=== PATIENT | female | born 2000 | race Caucasian/White ===

== ENCOUNTER 2022-02-04 04:52 | Inpatient (IN) ==
[2022-02-04] MEDS ORDERED: CARBOPROST TROMETHAMINE 250 MCG/ML AMP IM PRN (06:42)
[2022-02-04] MEDS ORDERED: OXYTOCIN/LR 20 UNIT/1,000 ML BAG IV PRN (06:42)
[2022-02-04] MEDS ORDERED: METHYLERGONOVINE 0.2 MG/1 ML AMP IM PRN (06:42)
[2022-02-04] MEDS ORDERED: miSOPROStoL 200 MCG TABLET RECTAL PRN (06:42)
[2022-02-04] MEDS ORDERED: TRANEXAMIC ACID 1,000 MG in SODIUM CHLORIDE 0.9% 100 ML IV PRN (06:42)
[2022-02-04] MEDS ORDERED: BUTORPHANOL 2 MG/ML VIAL IV PRN (06:42)
[2022-02-04 07:36] LABS: Basophils % 0.4 % (0.0-0.8); Eosinophils % 0.3 % (0.00-10.9); Hematocrit 38.7 VOL% (35.7-47.0); Immature Granulocytes % 0.5 %; Immature Granulocytes Absolute 0.05 #; Lymphocytes # 1.5 10*3/uL (1.4-4.0); Mean Corpuscular HGB Conc 33.6 GM/DL (32-36); Mean Corpuscular Volume 86.2 FL (87-102); Mean Platelet Volume 11.4 FL (9.6-12.0); Monocytes # 0.8 10*3/uL (0.11-0.8); Monocytes % 7.2 % (1.7-12.7); Neutrophils % 77.6 % (38.7-73.9); Platelet Count 190 T/CUMM (130-400); Red Blood Count 4.49 MC/CUMM (3.8-5.5); Red Cell Distribution Width 13.8 % (9.3-17.3); White Blood Count 10.8 T/CUMM (4-12)
[2022-02-04 08:07] LABS: Albumin 2.5 G/DL (3.4-5.0); Bilirubin,Total 0.4 MG/DL (0.20-1.00); Osmolality,Calculated 274.4 MOS/KG (273-304); Potassium 3.3 MMOL/L (3.5-5.1); Total Protein 6.3 G/DL (6.4-8.2)
[2022-02-04] MEDS: CLINDAMYCIN INJ 900 MG/50 ML PREMIX IV SCH ×2 (08:10→15:59)
[2022-02-04] MEDS: LACTATED RINGERS 1,000 ML IV SCH ×2 (08:10→16:32)
[2022-02-04] MEDS: MEPERIDINE 50 MG/1 ML VIAL IV PRN ×3 (11:14→20:58)
[2022-02-04] MEDS: ONDANSETRON 4 MG/2 ML VIAL IV PRN ×2 (11:14→22:11)
[2022-02-04] MEDS: PANTOPRAZOLE 40 MG TABLET PO SCH ×2 (11:55→21:01)
[2022-02-04] MEDS ORDERED: NALOXONE 0.4 MG/ML VIAL IV PRN (21:54)
[2022-02-04] MEDS ORDERED: ePHEDrine 50 MG/ML VIAL IV PRN (21:54)
[2022-02-04] MEDS ORDERED: FAMOTIDINE 20 MG/2 ML VIAL IV ONE (21:54)
[2022-02-04] MEDS ORDERED: PROMETHAZINE 25 MG/1 ML VIAL IM ONE (21:54)
[2022-02-04] MEDS ORDERED: LACTATED RINGERS 500 ML IV ONE (21:54)
[2022-02-04] MEDS ORDERED: diphenhydrAMINE 50 MG/1 ML VIAL IV PRN (21:54)
[2022-02-04] MEDS ORDERED: CITRIC ACID/SODIUM CITRATE 30 ML UDCUP PO ONE (21:54)
[2022-02-04] MEDS ORDERED: CITRIC ACID/SODIUM CITRATE 30 ML UDCUP ONE (21:58)
[2022-02-04] MEDS ORDERED: LACTATED RINGERS 1,000 ML IV ONE (22:05)
[2022-02-04] MEDS: fentaNYL 2 MCG/ROPIV 0.2% EPID 100 ML EPIDURAL SCH (23:16)
[2022-02-05 00:46] LABS: Bacteria,Urine Occasional /HPF (Few); Mucus,Urine Few /LPF (Occasional); RBC,Urine 1 /HPF (0-4); Squamous Epithelial Cell,Urine Occasional /HPF (0-10)
[2022-02-05 00:47] LABS: Bilirubin,Urine Negative (Negative); Blood, Urine Negative (Negative); Glucose,Urine (UA) Negative (Negative); Ketones,Urine >160 mg/dL (Negative); Nitrite,Urine Negative (Negative); Protein,Urine Trace mg/dL (Negative); Urine Appearance Clear (Clear); Urine Color Yellow (Yellow); Urine Specific Gravity > 1.030 (1.001-1.035); Urine pH 6.5 (4.5-8.0)
[2022-02-05 00:48] LABS: Urine Urobilinogen 0.2 eU/dL (<2.0)
[2022-02-05] MEDS: CLINDAMYCIN INJ 900 MG/50 ML PREMIX IV SCH ×2 (02:13→12:09)
[2022-02-05] MEDS: LACTATED RINGERS 1,000 ML IV SCH ×2 (02:19→09:37)
[2022-02-05] MEDS: ONDANSETRON 4 MG/2 ML VIAL IV PRN (05:29)
[2022-02-05] MEDS ORDERED: miSOPROStoL 200 MCG TABLET ONE (06:17)
[2022-02-05] MEDS ORDERED: TRANEXAMIC ACID 1,000 MG/10 ML VIAL ONE (06:17)
[2022-02-05] MEDS ORDERED: CARBOPROST TROMETHAMINE 250 MCG/ML AMP IM ONE (06:17)
[2022-02-05] MEDS ORDERED: SODIUM CHLORIDE 0.9% 0 ML IV ONE (06:17)
[2022-02-05] MEDS ORDERED: METHYLERGONOVINE 0.2 MG/1 ML AMP ONE (06:17)
[2022-02-05] MEDS ORDERED: OXYTOCIN/LR 20 UNIT/1,000 ML BAG IV ONE ×2 (06:17→10:11)
[2022-02-05] MEDS: fentaNYL 2 MCG/ROPIV 0.2% EPID 100 ML EPIDURAL SCH ×2 (06:26→12:09)
[2022-02-05 10:04] LABS: Cord Arterial Blood HCO3 17.9 MMOL/L
[2022-02-05 10:06] LABS: Cord Venous Blood PCO2 41.6 MMHG; Cord Venous Blood PO2 31.8
[2022-02-05] MEDS ORDERED: WITCH HAZEL PADS 100/JAR TOP PRN (10:11)
[2022-02-05] MEDS ORDERED: ACETAMINOPHEN 325 MG TABLET PO PRN (10:11)
[2022-02-05] MEDS ORDERED: BENZOCAINE 20%/MENTHOL 0.5% SPRAY 56 GM CAN TOP PRN (10:11)
[2022-02-05] MEDS ORDERED: DIPH/TET/ACEL PERT BOOSTER VACCINE 0.5 ML VIAL IM ONE (10:11)
[2022-02-05] MEDS ORDERED: RHO(D) IMMUNE GLOBULIN 300 MCG SYRINGE IM ONE (10:11)
[2022-02-05] MEDS ORDERED: ONDANSETRON 4 MG/2 ML VIAL IV PRN (10:11)
[2022-02-05] MEDS ORDERED: oxyCODONE/ACETAMINOPHEN 5-325 MG TABLET PO PRN (10:11)
[2022-02-05] MEDS ORDERED: MEASLES/MUMPS/RUBELLA VACCINE 0.5 ML VIAL SUBCUT ONE (10:11)
[2022-02-05] MEDS ORDERED: BISACODYL 10 MG SUPP RECTAL PRN (10:11)
[2022-02-05] MEDS ORDERED: HYDROCORTISONE 2.5% RECTAL CREAM 30 GM TUBE TOP PRN (10:11)
[2022-02-05] MEDS ORDERED: LANOLIN 50% CREAM 0.3 OZ TUBE TOP PRN (10:11)
[2022-02-05] MEDS ORDERED: ALUMINUM/MAGNES/SIMETH MAX STR 30 ML UDCUP PO PRN (10:34)
[2022-02-05] MEDS: PANTOPRAZOLE 40 MG TABLET PO SCH ×2 (11:03→21:00)
[2022-02-05] MEDS: IBUPROFEN 800 MG TABLET PO PRN ×3 (12:34→23:54)
[2022-02-05] MEDS: oxyCODONE/ACETAMINOPHEN 5-325 MG TABLET PO PRN ×3 (12:34→23:55)
[2022-02-05] MEDS: DOCUSATE SODIUM 100 MG CAPSULE PO SCH (21:00)
[2022-02-06 06:04] LABS: Basophils # 0.1 10*3/uL (0.0-0.2); Basophils % 0.4 % (0.0-0.8); Eosinophils # 0.1 10*3/uL (0.0-0.87); Eosinophils % 0.7 % (0.00-10.9); Hematocrit 35.2 VOL% (35.7-47.0); Hemoglobin 11.9 GM/DL (12.0-16.0); Immature Granulocytes % 0.7 %; Immature Granulocytes Absolute 0.12 #; Lymphocytes # 2.8 10*3/uL (1.4-4.0); Lymphocytes % 15.7 % (21.3-54.2); Mean Corpuscular HGB Conc 33.8 GM/DL (32-36); Mean Corpuscular Volume 86.5 FL (87-102); Mean Platelet Volume 11.6 FL (9.6-12.0); Monocytes # 1.1 10*3/uL (0.11-0.8); Monocytes % 6.2 % (1.7-12.7); Neutrophils % 76.3 % (38.7-73.9); Platelet Count 174 T/CUMM (130-400); Red Blood Count 4.07 MC/CUMM (3.8-5.5); Red Cell Distribution Width 14.2 % (9.3-17.3); White Blood Count 17.8 T/CUMM (4-12)
[2022-02-06] MEDS: PANTOPRAZOLE 40 MG TABLET PO SCH ×2 (09:29→20:21)
[2022-02-06] MEDS: MULTIVITAMIN (PRENATAL) TABLET PO SCH (09:29)
[2022-02-06] MEDS: DOCUSATE SODIUM 100 MG CAPSULE PO SCH ×2 (09:29→20:21)
[2022-02-06] MEDS: IBUPROFEN 800 MG TABLET PO PRN ×2 (09:30→20:21)
[2022-02-06] MEDS: oxyCODONE/ACETAMINOPHEN 5-325 MG TABLET PO PRN (09:31)
[2022-02-06] MEDS ORDERED: diphenhydrAMINE 2% CREAM 28 GM TUBE TOP PRN (21:58)
[2022-02-07] MEDS: POTASSIUM CHLORIDE 20 MEQ TABLET PO PRN ×3 (00:05→06:20)
[2022-02-07] MEDS: IBUPROFEN 800 MG TABLET PO PRN (03:12)
[2022-02-07 07:16] VITALS: BP 112/62
[2022-02-07] MEDS: PANTOPRAZOLE 40 MG TABLET PO SCH (09:54)
[2022-02-07] MEDS: MULTIVITAMIN (PRENATAL) TABLET PO SCH (09:54)
[2022-02-07] MEDS: DOCUSATE SODIUM 100 MG CAPSULE PO SCH (09:54)
== END 2022-02-07 13:37 | disposition home or self-care (01) | DRG 807 ==
LOC: N.LD 04:58 → N.OB 02-05 12:58
PROVIDERS: ADMIT Obstetrics & Gynecology; ATTEND Obstetrics & Gynecology